=== PATIENT | male | born 1950 | race Caucasian/White ===

== ENCOUNTER → 2018-06-08 09:34 | Outpatient (CLI) | payer OTHER, SELFPAY ==
[2018-06-08 10:32] LABS: Albumin 4.1 g/dL (3.5-5.0); Chloride 103 mmol/L (98-107); HEMOLYSIS < 15 (0-50); Potassium 4.2 mmol/L (3.4-5.1); Sodium 141 mmol/L (137-145)
[2018-06-08 11:12] LABS: Alanine Aminotransferase 20 IU/L (21-72); Albumin Globulin Ratio 1.3 (1.0-2.8); Alkaline Phosphatase 72 U/L (38-126); Aspartate Aminotransferase 20 IU/L (17-59); Bilirubin Total 0.8 mg/dL (0.2-1.3); Blood Urea Nitrogen 18 mg/dL (9-20); Calcium 9.4 mg/dL (8.4-10.2); Carbon Dioxide 26 mmol/L (22-32); Cholesterol 193 mg/dL (140-199); Estimated Glomerular Filt Rate > 60.0 mL/min (>60); Globulin 3.2 g/dL (1.7-4.1); Glucose 101 mg/dL (80-110); HDL Cholesterol 32 mg/dL (40-60); LDL Cholesterol Calculated 88 mg/dL (<100); Total Protein 7.3 g/dL (6.3-8.2); Triglycerides 365 mg/dL (35-150)
== END ==
PROVIDERS: Visit Provider Internal Medicine
DX: Z00.00 Encounter for general adult medical examination without abnormal findings (principal)
CPT/HCPCS: 36415; 80053; 80061

== ENCOUNTER 2022-09-27 11:49 | Emergency (ER) | payer OTHER, SELFPAY ==
[2022-09-27 11:56] VITALS: BP 162/92; PULSE 71; RESP 15; TEMP 36.3; O2SAT 98; BMI 25.9
--- NOTE | 2022-09-27 11:57 | DI.CT.S_ITS ---
PROCEDURE: CT ABDOMEN PELVIS W CON INDICATIONS: incarcerated hernia TECHNIQUE: After the administration of intravenous contrast, axial sections acquired from the lung bases to the pubic symphysis. Coronal and sagittal reformats were performed. For radiation dose reduction, the following was used: automated exposure control, adjustment of mA and/or kV according to patient size. COMPARISON: None. FINDINGS: Lower thorax: The lung bases are clear. Heart size normal. Small hiatal hernia noted. Liver: Normal in size and attenuation. No contour deformity present. Biliary system: No calcified cholelithiasis or pericholecystic inflammation. No intra or extrahepatic bile duct dilatation. Pancreas: Unremarkable without mass or inflammation evident. Spleen: Normal in size and density. Adrenals: Normal morphology and density. Reproductive system: Unremarkable as visualized. Urinary system: Normal renal size and attenuation. No renal calculi, hydronephrosis, or solid mass present. Urinary bladder unremarkable. Gastrointestinal system: The bowel is unremarkable without evidence of bowel obstruction or inflammation. The stomach appears unremarkable. Multiple diverticula arise from the sigmoid colon without evidence of diverticulitis. Appendix: No findings to suggest acute appendicitis. Peritoneal spaces: No mesenteric or retroperitoneal adenopathy. No free air. No free fluid. Vasculature: The IVC, aorta and iliac vasculature are unremarkable. Abdominal wall: 3.3 cm periumbilical hernia contains fat without bowel involvement. Surrounding subcutaneous edema consistent with given history. Left inguinal hernia(s) contain fat without bowel involvement. Musculoskeletal: Normal bone mineralization. Degenerative disc disease and arthropathy noted in lower lumbar spine. No acute fractures. IMPRESSION: Incarcerated periumbilical ventral hernia contains fat without bowel involvement. Small hiatal and left inguinal hernias also contain fat without bowel. Diverticulosis without evidence of diverticulitis Approved by: Onofre Barrientos M.D. on 09/27/2022 at 13:40
[2022-09-27 12:31] LABS: Add Manual Diff / Slide Review NO; Basophils Absolute Auto 100 /uL (0-100); Basophils Percent Auto 0.9 % (0-2); Eosinophils Absolute Auto 200 /uL (0-450); Eosinophils Percent Auto 1.8 % (2-4); Hematocrit 43.5 % (41-53); Hemoglobin 14.6 g/dL (13.5-17.5); Lymphocytes Absolute Auto 1800 /uL (1100-4500); Lymphocytes Percent Auto 16.4 % (25-40); Mean Corpuscular HGB Conc 33.7 % (30-36); Mean Corpuscular Hemoglobin 29.6 PG (26-34); Mean Corpuscular Volume 87.8 fL (80-100); Monocytes Absolute Auto 1100 /uL (0-900); Monocytes Percent Auto 9.6 % (3-14); Neutrophils Absolute Auto 8000 /uL (1500-7000); Neutrophils Percent Auto 71.3 % (50-75); Platelet Count 294 X10^3/uL (150-400); Red Blood Cell Count 4.95 X10^6/uL (4.5-5.9); Red Cell Distribution Width 13.2 % (11.6-14.8); White Blood Cell Count 11.2 X10^3/uL (4.5-11.0)
--- NOTE | 2022-09-27 12:42 | ED.ABDPAIN ---
HPI - Abdominal Pain General Chief Complaint: Abdominal Pain Stated Complaint: Belly button hernia Time Seen by Provider: 09/27/22 11:57 Source: patient Mode of arrival: Ambulatory History of Present Illness HPI narrative: 72-year-old male presenting with pain localized to the ventral hernia that has been present for the last 3-4 days. Patient reports long history of ventral hernia, developed gradually worsening pain localized to the area of the ventral hernia over the last 3 or 4 days. Associated mild erythema. No vomiting, continues to tolerate oral intake without difficulty, no change in bowel movements or urination. Pain is mild to moderate, constant, worse with movement or palpation. Related Data Home Medications Medication Instructions Recorded Confirmed aspirin 81 mg tablet,delayed 81 mg PO DAILY 06/08/18 09/28/22 release Previous Rx's Medication Instructions Recorded losartan 25 mg tablet 25 mg PO QDAY #90 tabs 03/19/18 diclofenac sodium 3 % topical gel 1 applictn topical BID #100 grams 06/19/18 Allergies Allergy/AdvReac Type Severity Reaction Status Date / Time No Known Drug Allergies Allergy Verified 09/27/22 11:56 Patient History Medical History (Updated 09/27/22 @ 15:55 by Crow Williamson MD) Colitis (2013) Colon polyps (2002) Hearing loss (2012) Hypertension (2007) Hypogonadism (2007) Mumps (1959) Osteoarthritis of knees, bilateral (2016) Surgical History (Updated 06/04/18 @ 13:18 by Светлана Johnson) History of carpal tunnel repair (2016) History of vasectomy Status post colonoscopy (2002) Family History (Updated 06/04/18 @ 13:22 by Светлана Johnson) Father Hypertension Sudden Brother No problems noted. Brother No problems noted. Brother No problems noted. Mother No problems noted. Sister No problems noted. Social History household members: spouse Smoking Status: Never smoker alcohol intake: current Smoking Status: Never smoker alcohol intake frequency: holidays/special occasions only Substance Use Type: does not use Exam Narrative Exam Narrative: Vitals reviewed. Nursing note reviewed Constitutional: interactive HENT: Moist mucous membranes EYES: No scleral icterus NECK: no masses CV: Well perfused peripherally, no cyanosis present PULM: Unlabored respirations, symmetric chest rise ABD: Non-distended, approximally pre 5 cm firm area about the ventral hernia, mild tenderness with palpation, mild surrounding erythema without induration, no skin breakdown MS: No gross deformities, no asymmetric edema noted SKIN: Warm and dry. PSYCH: Appropriate affect NEURO: Follows simple commands, moves extremities, interactive with exam Initial Vital Signs Initial Vital Signs: Vital Signs Temperature 97.4 F L 09/27/22 11:56 Pulse Rate 71 09/27/22 11:56 Respiratory Rate 15 09/27/22 11:56 Blood Pressure 162/92 H 09/27/22 11:56 Pulse Oximetry 98 09/27/22 11:56 Oxygen Delivery Method 09/27/22 11:56 Course Orders Ordered: Discontinued Medications Sodium Chloride (Normal Saline 0.9%) 1,000 mls @ 1,000 mls/hr IV BOLUS ONE Stop: 09/27/22 12:56 Last Infusion: 09/27/22 15:24 Dose: 0 mls/hr Documented By: Admin: 09/27/22 13:02 Dose: 1,000 mls/hr Documented By: WEN Ceftriaxone Sodium 2,000 mg/ (Sodium Chloride) 100 mls @ 200 mls/hr IV NOW ONE Stop: 09/27/22 11:59 Last Infusion: 09/27/22 13:44 Dose: 0 mls/hr Documented By: Admin: 09/27/22 13:01 Dose: 200 mls/hr Documented By: WEN Metronidazole (Flagyl) 500 mg in 100 mls @ 100 mls/hr IV NOW ONE Stop: 09/27/22 12:57 Last Infusion: 09/27/22 15:24 Dose: 0 mls/hr Documented By: Admin: 09/27/22 13:51 Dose: 100 mls/hr Documented By: REMBERTO Vital Signs Vital signs: Vital Signs - 8 hr 09/27/22 11:56 Temperature 97.4 F L Pulse Rate 71 Respiratory Rate 15 Blood Pressure 162/92 H Pulse Oximetry 98 Oxygen Delivery Method Room Air MDM - Abdominal Pain Lab Data Result diagrams: 09/27/22 12:20 09/27/22 12:20 Labs: Lab Results 09/27/22 09/27/22 09/27/22 Range/Units 12:20 12:20 12:20 WBC 11.2 H (4.5-11.0) X10^3/uL RBC 4.95 (4.5-5.9) X10^6/uL Hgb 14.6 (13.5-17.5) g/dL Hct 43.5 (41-53) % MCV 87.8 (80-100) fL MCH 29.6 (26-34) PG MCHC 33.7 (30-36) % RDW 13.2 (11.6-14.8) % Plt Count 294 (150-400) X10^3/uL Neut % (Auto) 71.3 (50-75) % Lymph % (Auto) 16.4 L (25-40) % [place] % (Auto) 9.6 (3-14) % Eos % (Auto) 1.8 L (2-4) % Baso % (Auto) 0.9 (0-2) % Neut # (Auto) 8000 H (2207-0993) /uL Lymph # (Auto) 1800 (5307-8097) /uL Will[place] # (Auto) 1100 H (0-900) /uL Eos # (Auto) 200 (0-450) /uL Baso # (Auto) 100 (0-100) /uL Sodium 136 L (137-145) mmol/L Potassium 4.1 (3.4-5.1) mmol/L Chloride 100 (98-107) mmol/L Carbon Dioxide 28 (22-32) mmol/L BUN 14 (9-20) mg/dL Creatinine 1.06 (0.66-1.25) mg/dL Estimated GFR > 60 (>60) mL/min BUN/Creatinine Ratio 13.2 (6-22) Glucose 96 (80-110) mg/dL Lactate 1.0 (0.7-2.1) mmol/L Calcium 8.9 (8.4-10.2) mg/dL Total Bilirubin 1.0 (0.2-1.3) mg/dL AST 23 (17-59) IU/L ALT 21 (<50) IU/L Alkaline Phosphatase 69 (38-126) U/L Total Protein 7.7 (6.3-8.2) g/dL Albumin 4.2 (3.5-5.0) g/dL Globulin 3.5 (1.7-4.1) g/dL Albumin/Globulin Ratio 1.2 (1.0-2.8) Lipase 53 (23-300) U/L SARS-CoV-2 (PCR) (Negative) 09/27/22 Range/Units 12:20 WBC (4.5-11.0) X10^3/uL RBC (4.5-5.9) X10^6/uL Hgb (13.5-17.5) g/dL Hct (41-53) % MCV (80-100) fL MCH (26-34) PG MCHC (30-36) % RDW (11.6-14.8) % Plt Count (150-400) X10^3/uL Neut % (Auto) (50-75) % Lymph % (Auto) (25-40) % Will[place] % (Auto) (3-14) % Eos % (Auto) (2-4) % Baso % (Auto) (0-2) % Neut # (Auto) (5315-7588) /uL Lymph # (Auto) (8942-2607) /uL Willacy # (Auto) (0-900) /uL Eos # (Auto) (0-450) /uL Baso # (Auto) (0-100) /uL Sodium (137-145) mmol/L Potassium (3.4-5.1) mmol/L Chloride (98-107) mmol/L Carbon Dioxide (22-32) mmol/L BUN (9-20) mg/dL Creatinine (0.66-1.25) mg/dL Estimated GFR (>60) mL/min BUN/Creatinine Ratio (6-22) Glucose (80-110) mg/dL Lactate (0.7-2.1) mmol/L Calcium (8.4-10.2) mg/dL Total Bilirubin (0.2-1.3) mg/dL AST (17-59) IU/L ALT (<50) IU/L Alkaline Phosphatase (38-126) U/L Total Protein (6.3-8.2) g/dL Albumin (3.5-5.0) g/dL Globulin (1.7-4.1) g/dL Albumin/Globulin Ratio (1.0-2.8) Lipase (23-300) U/L SARS-CoV-2 (PCR) Negative (Negative) Point of care testing: Urine Dip Bedside Urine Glucose Negative Bedside Urine Bilirubin - Negative Bedside Urine Ketone - Negative Urine Specific Reynolds 1.010 Bedside Urine Occult Blood - Negative Bedside Urine pH 6.0 Bedside Urine Protein - Negative Bedside Urine Urobilinogen - Negative Bedside Urine Nitrite - Negative Bedside Urine Leukocytes - Negative Esterase MDM Narrative Medical decision making narrative: 72-year-old male presenting with abdominal pain and concern for incarcerated hernia. On presentation, vital signs notable for no significant abnormalities. Physical exam notable for a well-appearing 72-year-old male who is in no acute distress, firm hernia that is mildly tender with palpation, minimal overlying skin changes. Initial concern for incarcerated hernia versus strangulated hernia versus fat containing hernia, occult sepsis, obstruction, cellulitis, abscess. Broad screening labs were obtained and notable for minimal white count, overall reassuring CMP within normal range creatinine. Discussed case with general surgery service, recommending CT imaging to evaluate for incarcerated hernia versus fat containing hernia to disposition. CT imaging obtained and notable for no evidence of bowel within hernia, concern for fat containing hernia. Discussed findings with patient at bedside. Discussed case with General surgery, arrangements made by general surgery office to have patient follow up in 2 days in clinic for expedited management. Patient was given return precautions. Patient is subsequently discharged in stable condition. Discharge Plan Departure Patient Disposition: Home Clinical Impression: Hernia Instructions: DI for Ventral Hernia Activity Restrictions/Additional Instructions: Please follow-up on with surgery as discussed. Please return to the emergency department if you develop new or worsening symptoms. Prescriptions: No Action diclofenac sodium 3 % gel 1 applictn TOP BID Qty: 100 0RF losartan 25 mg tablet 25 mg PO QDAY Qty: 90 1RF Rx Instructions: Take one tablet by mouth daily aspirin 81 mg tablet,delayed release (DR/EC) 81 mg PO DAILY Referrals: Oleg Oates MD [Primary Care Provider] - Stand Alone Forms: Patient Portal/API
[2022-09-27 12:43] LABS: Alanine Aminotransferase 21 IU/L (<50); Albumin 4.2 g/dL (3.5-5.0); Albumin Globulin Ratio 1.2 (1.0-2.8); Alkaline Phosphatase 69 U/L (38-126); Aspartate Aminotransferase 23 IU/L (17-59); BUN Creatinine Ratio 13.2 (6-22); Blood Urea Nitrogen 14 mg/dL (9-20); Calcium 8.9 mg/dL (8.4-10.2); Carbon Dioxide 28 mmol/L (22-32); Chloride 100 mmol/L (98-107); Estimated Glomerular Filt Rate > 60 mL/min (>60); Globulin 3.5 g/dL (1.7-4.1); Glucose 96 mg/dL (80-110); HEMOLYSIS 23 (0-50); Lipase 53 U/L (23-300); Potassium 4.1 mmol/L (3.4-5.1); Sodium 136 mmol/L (137-145); Total Protein 7.7 g/dL (6.3-8.2)
[2022-09-27 12:51] VITALS: O2SAT 92
[2022-09-27 13:00] LABS: COVID19 -Nasal RAPID Negative (Negative)
[2022-09-27 13:01] VITALS: BP 158/80
[2022-09-27] MEDS: cefTRIAXone 2,000 MG in SODIUM CHLORIDE 0.9% 100 ML 200 MG IV (13:01)
[2022-09-27] MEDS: SODIUM CHLORIDE 0.9% 1,000 ML 1000 ML IV (13:02)
[2022-09-27 13:05] VITALS: O2SAT 92
[2022-09-27] MEDS: metroNIDAZOLE 500 MG/100 ML PIGGYBACK 100 MG IV (13:51)
[2022-09-27 15:59] VITALS: BP 158/93; PULSE 67; O2SAT 96
[2022-09-27 16:00] VITALS: PULSE 67; O2SAT 95
== END 2022-09-27 16:03 | disposition home or self-care (01) ==
PROVIDERS: Emergency Provider Emergency Medicine; PCP Family Medicine
DX: K43.9 Ventral hernia without obstruction or gangrene (principal); Z20.822 Contact with and (suspected) exposure to COVID-19
CPT/HCPCS: 36415; 74177; 80053; 81003; 83605; 83690; 85025; 87635; 93005; 93010; 96365; 96366; 96367; 99284; C9803; J0696; Q9967

== ENCOUNTER 2022-09-30 11:54 | Day surgery (SDC) | payer OTHER, SELFPAY ==
[2022-09-28 08:09] VITALS: BMI 25.5
[2022-09-30 12:03] VITALS: BP 157/91; PULSE 77; RESP 20; TEMP 36.8; O2SAT 98; BMI 25.5
[2022-09-30] MEDS: LACTATED RINGERS 1,000 ML 42 ML IV (12:17)
--- NOTE | 2022-09-30 12:17 | PM.HP.1 ---
History of Present Illness History of Present Illness Date Patient Seen: 09/30/22 Time Patient Seen: 12:17 Chief complaint: [facility] Narrative: Umbilical hernia incarcerated with omentum. 3-5 days duration. Tender, sharp pain with movement. Has had the hernia for over 10 years. Patient History Medical History Colitis (2013) Colon polyps (2002) Hearing loss (2012) Hypertension (2007) Hypogonadism (2007) Mumps (1959) Osteoarthritis of knees, bilateral (2016) Surgical History History of carpal tunnel repair (2016) History of vasectomy Status post colonoscopy (2002) Family & Social History Family History Father Hypertension Sudden Brother No problems noted. Brother No problems noted. Brother No problems noted. Mother No problems noted. Sister No problems noted. Social History: household members spouse Tobacco & Substance use: Smoking Status Never smoker alcohol intake current alcohol intake frequency holiday/special occasion Substance Use Type does not use Meds Home Medications and Allergies Home Medications Medication Instructions Recorded Confirmed Type losartan 25 mg tablet 25 mg PO QDAY #90 tabs 03/19/18 09/28/22 Rx aspirin 81 mg tablet,delayed 81 mg PO DAILY 06/08/18 09/28/22 History release diclofenac sodium 3 % topical gel 1 applictn topical BID #100 grams 06/19/18 09/28/22 Rx Allergies Allergy/AdvReac Type Severity Reaction Status Date / Time No Known Drug Allergies Allergy Verified 09/30/22 12:03 Review of Systems Review of Systems ROS: Yes All systems reviewed with the patient and are negative except as otherwise documented Exam Const General: cooperative and healthy appearing Nutritional Appearance: average body habitus Orientation: alert, awake and oriented x3 HENMT Head: normal to inspection Eyes General: appearance normal, both eyes and all related structures Neck Neck: trachea midline Chest Chest: normal inspection of the chest Resp Effort & Inspection: normal respiratory effort and able to speak in complete sentences Cardio Rate: regular rate Rhythm: regular rhythm GI Palpation: soft Other: Incarcerated umbilical hernia Skin General: no rashes or lesions noted and atrophy Neuro General: patient alert, patient awake and patient oriented x3 Cognition: normal cognition Extrem General: full ROM Psych Appearance: grossly normal Judgment: judgment good Assessment & Plan Assessment & Plan narrative: Incarcerated omentum in small umbilical hernia. Size of defect 5mm Plan: simple repair w/o mess of umbilical hernia COVID-19 COVID-19 status: Negative Time Spent With Patient Time with patient: less than 30 minutes Critical Care time: I spent a total of [] minutes of critical care time on this patient's care today; this time is exclusive of procedural time.
[2022-09-30] MEDS: CEFAZOLIN 2 GM/100 ML PREMIX 100 ML IV (12:51)
[2022-09-30] MEDS: BUPIVACAINE 0.5% W/ EPI (PF) 30 ML VIAL INJ (12:53)
--- NOTE | 2022-09-30 12:55 | SUR.OPER ---
Supine on padded OR bed, head on pillow, arms secured on padded arm boards at <90 degrees abduction, legs uncrossed, safety belt at thigh, tape over blanket over lower legs. Pt positioned per direction and supervision of Dr Angel.
--- NOTE | 2022-09-30 13:11 | P.OP_ITS ---
Operative Date/Time/Diagnoses Date of procedure: 09/30/22 Time of procedure: 13:11 Pre-op diagnosis: Umbilical hernia incarcerated with omentum Post-op diagnosis: same Procedure & Clinicians Procedure: Umbilical hernia repair primarily, no mesh. Defect 5 mm in size Same procedure as scheduled: Yes Indications: Incarcerated umbilical hernia Surgeon: Becky Angel Click Yes if Unassisted: Yes Anesthesia Type: General Operative Notes Findings: Umbilical hernia incarcerated with omentum. Defect 5 mm Closure Type: primary Specimen(s): none sent Estimated Blood Loss (mL): 5 Blood products transfused: none Procedure in detail: Preop diagnosis: Incarcerated umbilical hernia, 5 mm defect Postop diagnosis: Same Operative procedure: Primary repair of umbilical hernia, no mesh Surgeon: Yana Angel MD Anesthetic: General with local Findings: Incarcerated omentum, 5 mm defect Procedure: Patient placed in a supine position. Prepped and draped in sterile fashion to expose his abdomen. Curvilinear incision was made above the umbi licus. Electrocautery along with blunt dissection allowed me to circumferentially exposed the incarcerated piece of omentum. Rather than free it and return it to the abdomen given that it was ischemic, I chose to amputate small portion of the omentum and then closed the defect primarily. Fascial defect was closed with a 2-0 Ethibond in a U stitch fashion. Skin was closed with running 4-0 Vicryl. Steri-Strips and sterile dressings were placed. Patient was awakened, extubated, taken to recovery room stable condition. Needle, instrument, sponge counts were correct. Blood loss: 5 mL Specimen: None Complications: none Post-operative Condition: stable Disposition: PACU Plan for aftercare: home
[2022-09-30 13:23] VITALS: BP 105/54; PULSE 75; RESP 12; TEMP 36.3; O2SAT 95
[2022-09-30 13:29] VITALS: BP 110/56; PULSE 74; RESP 14; O2SAT 96
[2022-09-30 13:35] VITALS: BP 110/56; PULSE 72; RESP 12; O2SAT 95
[2022-09-30 13:44] VITALS: BP 114/62; PULSE 70; RESP 15; TEMP 36.4; O2SAT 96
== END 2022-09-30 14:40 | disposition home or self-care (01) ==
PROVIDERS: PCP Family Medicine; Referring Provider Surgery; Visit Provider Surgery
PROC: (CPT 49592; principal; 2022-09-30 13:30)
DX: K42.0 Umbilical hernia with obstruction, without gangrene (principal)
CPT/HCPCS: 49592; J0330; J0690; J1100; J1170; J2405; J2704

== ENCOUNTER → 2024-07-26 08:08 | Outpatient (CLI) | payer OTHER, SELFPAY ==
--- NOTE | 2024-07-26 | DI.RAD.S_ITS ---
PROCEDURE: XR FOOT RT 2V INDICATIONS: inflammatory heel pain, right TECHNIQUE: Two views of the foot were acquired. COMPARISON: None. FINDINGS: Bones: Mild valgus and metatarsus abductus appreciated. 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 There is mild degeneration in the 3rd 4th and 5th interphalangeal joints. Soft tissues: Mild forefoot soft tissue swelling noted. There is minor calcification of the plantar tendon insertion on the calcaneus. IMPRESSION: Mild soft tissue swelling and other chronic findings Dictated by: Az Menon M.D. on 07/29/2024 at 9:30 Approved by: Az Menon M.D. on 07/29/2024 at 9:31
== END ==
PROVIDERS: PCP Family Medicine; Referring Provider Family Medicine; Visit Provider Family Medicine
DX: M19.071 Primary osteoarthritis, right ankle and foot (principal); M20.11 Hallux valgus (acquired), right foot; M21.6X1 Other acquired deformities of right foot; M79.671 Pain in right foot; M79.89 Other specified soft tissue disorders
CPT/HCPCS: 73620